=== PATIENT | male | born 1965 | race Caucasian/White ===

== ENCOUNTER 2024-04-30 06:19 | Emergency (ER) | payer OTHER ==
[~2024-04-30] VITALS: Ht 175.3 cm; Wt 84.1 kg
[2024-04-30 06:40] VITALS: TEMP 99
[2024-04-30] MEDS ORDERED: LORazepam 1 MG TABLET PO ONE (07:00)
[2024-04-30] MEDS: KETOROLAC TROMETHAMINE 60 MG/2 ML VIAL IM ONE (07:32)
[2024-04-30] MEDS: LORazepam 0.5 MG TABLET PO ONE (07:32)
[2024-04-30 09:08] VITALS: BP 139/98; PULSE 83; RESP 18; O2SAT 99
== END 2024-04-30 09:35 | disposition home or self-care (01) ==
LOC: EMS 06:22
DX: F41.1 Generalized anxiety disorder (principal); R51.9 Headache, unspecified; I10 Essential (primary) hypertension; Z88.5 Allergy status to narcotic agent; Z98.890 Other specified postprocedural states
CPT/HCPCS: 99283; 96372; J1885